=== PATIENT | male | born 1955 | race Caucasian/White ===

== ENCOUNTER 2020-02-04 07:47 | Outpatient (CLI) | payer MEDICARE, SELFPAY ==
--- NOTE | ~2020-02-04 | MR_ITS ---
EXAMINATION: MR lumbar spine wo con EXAM DATE: 02/04/2020 08:36 INDICATION: Low back, right hip pain. TECHNIQUE: Multi-sequential, multiplanar MR images of the lumbar spine were obtained without contrast . Sagittal T1, T2, T2 fat saturation images. Axial T2 weighted images. There is no prior study for comparison. FINDINGS: The vertebral bodies are aligned in the AP dimension. Mild to moderate diffuse thoracolumba r disc disease. The conus medullaris terminates at the T12 level and has normal signal intensity and morphology. There are no suspicious marrow signal abnormalities. Paraspinal soft tissue is unremarka ble. Level by level evaluation: T12-L1: There is a mild diffuse disc bulge. Facet arthropathy: Mild. Neural foraminal stenosis: No stenosis. Central canal stenosis: No stenosis. L1-L2: There is a minimal diffuse disc bulge. Facet arthropathy: Mild. Neural foraminal stenosis: No stenosis. Central canal stenosis: No stenosis. L2-L3: There is a mild diffuse disc bulge. Facet arthropathy: Mild to moderate. Neural foraminal stenosis: Mild bilateral. Central canal stenosis: Mild. L3-L4: There is a moderate diffuse disc bulge. Facet arthropathy: Mild to moderate. Neural foraminal stenosis: Moderate bilateral. Central canal stenosis: Mild to moderate. L4-L5: There is a moderate to large diffuse disc bulge. Facet arthropathy: Moderate to severe . Ligamentum flavum enlargement. Neural foraminal stenosis: Moderate right, mild to moderate left. Central canal stenosis: Severe. L5-S1: There is a mild to moderate diffuse disc bulge. Small annular fissure. Facet arthropathy: Moderate. Neural foraminal stenosis: Mild to moderate right, mild left. Central canal stenosis: Mild. IMPRESSION: 1. L4-5 severe central canal stenosis. Reviewed, dictated and finalized at location A.
== END 2020-02-04 07:48 | disposition home or self-care (01) ==
PROVIDERS: PCP Family Medicine; Visit Provider Nurse Practitioner Family
DX: M54.5 Low back pain (principal)
CPT/HCPCS: 72148

== ENCOUNTER 2020-02-16 10:50 | Outpatient (CLI) | payer MEDICARE, SELFPAY | END 2020-02-16 10:51 | disposition home or self-care (01) | LOC: ANHAUDIO 10:51 | PROVIDERS: PCP Family Medicine; Visit Provider Family Medicine | DX: H90.3 Sensorineural hearing loss, bilateral (principal) | CPT/HCPCS: 92557; 92567 ==

== ENCOUNTER 2020-08-20 13:29 | Outpatient (CLI) | payer MEDICARE, SELFPAY | END 2020-08-20 13:30 | disposition home or self-care (01) | LOC: ANHCOVIDVC 13:29 | PROVIDERS: PCP Family Medicine | DX: Z23 Encounter for immunization (principal) | CPT/HCPCS: 0001A; 91300 ==

== ENCOUNTER 2020-09-10 13:29 | Outpatient (CLI) | payer MEDICARE, SELFPAY | END 2020-09-10 13:30 | disposition home or self-care (01) | LOC: ANHCOVIDVC 13:29 | PROVIDERS: PCP Family Medicine | DX: Z23 Encounter for immunization (principal) | CPT/HCPCS: 0002A; 91300 ==

== ENCOUNTER 2020-10-01 07:26 | Observation (INO) | payer MEDICARE, SELFPAY ==
[2020-10-01] VITALS (41 sets, daily range): BP systolic 158–226; BP diastolic 71–95; PULSE 68–93; RESP 12–24; TEMP 35.9–36.8; O2SAT 92–99; BMI 44.1
--- NOTE | ~2020-10-01 | CT_ITS ---
EXAMINATION: CT brain wo con INDICATION: Altered mental status COMPARISON: 09/03/2016 TECHNIQUE: Standard unenhanced head CT. The dose-length product (DLP) was 605.33 mGy-cm. The mA was a djusted according to patient size. Iterative reconstruction technique was employed. FINDINGS: There is no acute intraparenchymal hemorrhage. No evidence of mass lesion. No evidence of a cute infarction. There is mild periventricular and subcortical hypodensity probably related to small vessel ischemic disease. There is mild prominence of the sulci and ventricles related to cerebral atr ophy. Intracranial calcified cerebral atherosclerosis is noted. There are no extra-axial collections. There is no mass effect or midline shift. The orbits and soft tissues are unremarkable. There is mi ld mucosal thickening of the paranasal sinuses. IMPRESSION: 1. No acute intracranial abnormality. 2. Age related findings. Reviewed, dictated and finalized at location A.
--- NOTE | ~2020-10-01 | XR_ITS ---
EXAMINATION: XR chest 1V INDICATION: Altered mental status TECHNIQUE: AP view of the chest is obtained. COMPARISON: 09/03/2016 FINDINGS: The lungs are free of acute opacities. The heart size is upper limits of normal for techniq ue. There is no pleural effusion or pneumothorax the visualized osseous structures are unremarkable. IMPRESSION: 1. No acute cardiopulmonary abnormality. Reviewed, dictated and finalized at location A.
--- NOTE | 2020-10-01 07:34 | ECG_ITS ---
Measurements Intervals [place] Rate: 92 P: 51 TX: 147 QRS: -38 QRSD: 118 T: 53 QT: 386 QTc: 479 Interpretive Statements SINUS RHYTHM VENTRICULAR PREMATURE COMPLEXES LEFT AXIS DEVIATION INCOMPLETE RIGHT BUNDLE BRANCH BLOCK BASELINE WANDER- V1-V2 BORDERLINE ECG Electronically Signed On 10-01-2020 10:41:00 CDT by Kevin Adams D.O.
--- NOTE | 2020-10-01 07:57 | ED.AMS ---
HPI - Altered Mental Status General Chief Complaint: Altered Mental Status Stated Complaint: delusional outbursts Time Seen by Provider: 10/01/20 07:41 Source: RN notes reviewed History of Present Illness HPI narrative: Patient presents to emergency department from home for altered mental status. Patient states that he had gone with his family to [place] states that he normally lives with him and his and they had met his children on [place]. He states that when all the family is together there is a large amount of fighting and he states that he had several outburst with the family secondary to these outbursts the family felt the patient may be acting inappropriately and it had too much of the family and they had recommended he remove himself from the situation the patient flown home early. Patient states he is picked up by another family member last night have been recommended come to the ER but he states that that time he is a little confused on what they were wanting I got home instead. Patient states he woke up this morning and felt like he should probably be evaluated and drove himself to the ER patient is ANO x4 he denies any vision changes, headache, chest pain, shortness of breath, numbness or tingling in extremities or any other symptom states he has been taking his medications as prescribed but did not take his morning blood pressure medicines today Related Data Home Medications Medication Instructions Recorded Confirmed amlodipine 5 mg PO DAILY 10/01/20 citalopram 40 mg PO DAILY 10/01/20 fluticasone propion-salmeterol INHALATION BID 10/01/20 gabapentin 600 mg PO TID 10/01/20 glimepiride 4 mg DAILY 10/01/20 insulin glargine [Lantus Solostar 60 unit SUBCUT BID 10/01/20 U-100 Insulin] lisinopril 20 mg PO DAILY 10/01/20 metformin 1,000 mg PO BID 10/01/20 simvastatin 40 mg PO HS 10/01/20 tamsulosin 0.4 mg PO DAILY 10/01/20 Allergies Allergy/AdvReac Type Severity Reaction Status Date / Time No Known Allergies Allergy Verified 01/26/20 13:16 Review of Systems Review of Systems: Narrative: Gen.: Denies fevers or chills ENT: Denies congestion Respiratory: Denies shortness of breath or cough CV: Denies chest pain or palpitations GI: Denies abdominal pain nausea, emesis or diarrhea denies burning, urgency, frequency or hematuria Musculoskeletal: Denies back pain or muscle pain Neuro: Denies numbness, tingling, weakness or focal weakness Skin: Denies rash Psych: See HPI Except as documented, all other systems reviewed and negative PMFSH Past Medical History Medical History Chronic GERD Depression Diabetes 1.5, managed as type 2 Emphysema lung HTN (hypertension) Lumbar spine pain Sciatica Seasonal allergies SOB (shortness of breath) Urinary hesitancy Family History Family History Sibling Family history of thyroid disease Mother Cerebrovascular accident Family history of Alzheimer's disease Family history of hearing loss Grandparent Family history of Alzheimer's disease Father Malignant neoplasm of prostate Family history of coronary artery disease Family history of lung disease Family history of hearing loss Social History Social History Smoking status: Never smoker Alcohol intake: never Gender identity (if verbalized by the patient): Male Exam Narrative: Exam Narrative: APPEARANCE: No acute distress, nontoxic, resting in bed HEENT: Normocephalic, atraumatic, OMM, EYES: PERRL, EOMI NECK: Supple, nontender, full range of motion without pain, no meningismus RESPIRATORY: No respiratory distress, clear to auscultation bilaterally with no rhonchi wheezing or rales CARDIOVASCULAR: RRR s murmur ABDOMINAL: Soft, nontender, nondistended MUSCULOSKELETAL: Moves all extremities. No clubbing, cyanosis or edema. NEURO: A
[2020-10-01 08:12] LABS: Basophils Percent Auto 0.5 % (0.2-1.2); Eosinophils Absolute Auto 0.2 K/mm3 (0-0.3); Eosinophils Percent Auto 2.6 % (0-4.4); Hematocrit 38.8 % (42.0-52.0); Hemoglobin 11.8 g/dL (14.0-18.0); Immature Granulocyte Absolute 0.02 K/mm3 (0.00-0.031); Immature Granulocyte Percent A 0.2 % (0-0.5); Lymphocytes Absolute Auto 1.37 K/mm3 (0.9-3.2); Mean Corpuscular HGB Conc 30.4 g/dl (32-36); Mean Corpuscular Hemoglobin 25.5 pg (26-34); Mean Corpuscular Volume 83.8 fl (80-100); Mean Platelet Volume 9.2 fl (7.4-10.4); Monocytes Absolute Auto 0.8 K/mm3 (0.1-0.6); Monocytes Percent Auto 9.8 % (2.6-8.5); Neutrophils Absolute Auto 5.6 K/mm3 (1.3-6.7); Neutrophils Percent Auto 69.9 % (45.5-73.1); Platelet Count Result 351 k/mm3 (150-375); Red Blood Count 4.63 M/mm3 (4.6-6.20); Red Cell Distribution Width 15.9 % (11.5-14.5); White Blood Count 8.1 K/mm3 (4.5-10.0)
[2020-10-01 08:17] LABS: Add Urine Microscopic? YES; Appearance Urine Cloudy (Clear); Bacteria Urine Trace /hpf; Bilirubin Urine Negative (Negative); Blood Urine 1+ (Negative); Color Urine Yellow (Yellow); Glucose Urine UA 1+ mg/dL (Negative); Ketones Urine Negative (Negative); Leukocyte Esterase Ur 2+ LEU/UL (Negative); Mucus Urine Rare /lpf; Nitrate Urine Negative (Negative); Protein Urine 1+ mg/dL (Negative); Specific Grav Ur 1.026 (1.001-1.035); Squamous Epithelial Cell Urine Rare /hpf (Few); WBC Urine 31-50 /hpf
[2020-10-01 08:21] LABS: Alanine Aminotransferase 36 U/L (4-50); Albumin Level 4.4 g/dL (3.5-5.1); Alkaline Phosphatase 74 U/L (38-126); Anion Gap 8 mmol/L (8-16); Aspartate Amino Transferase 39 U/L (17-59); Bilirubin,Total 0.4 mg/dL (0.2-1.3); Blood Urea Nitrogen 17 mg/dL (9-20); Calcium 9.1 mg/dL (8.4-10.2); Carbon Dioxide 25 mmol/L (22-30); Chloride 107 mmol/L (98-107); Estimated CRCL calculation 78 ml/min; Estimated Glomerular Filt Rate > 60; Glucose 158 mg/dL (75-110); Potassium 3.5 mmol/L (3.4-5.0); Sodium 140 mmol/L (137-145)
[2020-10-01 08:22] LABS: Partial Thromboplastin Time 25.5 SECONDS (22.3-36.8); Prothrombin Time 13.6 Seconds (11.1-14.7)
[2020-10-01 08:27] LABS: Ethanol < 10 mg/dL (<10)
[2020-10-01 08:37] LABS: Amphetamine Screen Urine Negative (Negative); Barbiturate Screen Urine Negative (Negative); Benzodiazepines Screen Urine Negative (Negative); Cannabinoid Screen Urine Positive (Negative); Cocaine Screen Urine Negative (Negative); Methadone Screen Urine Negative (Negative); Opiate Screen Urine Negative (Negative); Phencyclidine Screen Urine Negative (Negative)
[2020-10-01] MEDS: amLODIPine BESYLATE 5 MG TABLET PO (08:40)
[2020-10-01] MEDS: lisinopriL 20 MG TABLET PO (08:40)
--- NOTE | 2020-10-01 10:23 | PC.NURSE ---
Addendum entered by Radha Ochoa RN 10/01/20 10:31: call placed on hold and dr kim will speak with family. Original Note: called laurie and she gave phone to daughter wayne: wayne states that there was family drama yesterday and pt expressed desire to return to [place]. pt was picked up at airport by a relative. pt was reported to smoke cannibus while in [place]. family states pt was compliant with all meds while on vacation. family unsure why he would go to ed unless he was concerned with diabetes. wayne states that pt was more argumentative recently while consuming cannibus. wayne does not think anyone told pt he was delusional or having psych issues. will return to [place] on october 10. there is family in town (sister in law) to care for pt.
[2020-10-01 10:30] LABS: Glucose Point of Care 162 mg/dl (65-105)
[2020-10-01 14:55] LABS: Glucose Point of Care 114 mg/dl (65-105)
--- NOTE | 2020-10-01 15:05 | ADMGEN ---
This patient, Kwesi Rogers, was admitted to Medical Room 257-01. Patient/family oriented to hospital policies and general routines including ID bracelet, bed and alarms, visiting hours, pain management, procedures, bathroom and other care routines, personal items, smoking policy, room service/diet, and visiting hours. Information on how to activate the Rapid Response Team has been discussed. Patient/Family are encouraged to report perceived risks to care and to ask questions if they do not understand what they are told or what they should do.
--- NOTE | 2020-10-01 18:59 | PM.IMHP ---
H&P: HPI History of Present Illness Date/Time: 10/01/20 18:59 this is a 65-year-old male patient who really does not have any complaints. The patient recently went on a trip to [place] with his and 2 step children. The patient left early because he was arguing with her children and could no longer take it. He stated that the family members were having several outbursts. And there was a large amount of fighting within the family. So the patient decided to take a flight home by himself. He was able to make it to the airport and had to be taken by wheelchair to get on the plane. The patient denied any fever chills. He has no nausea vomiting or diarrhea. The patient feels that he is a little bit confused and he wanted to get checked out. The patient does have COPD and stated that he was using inhalers quite frequently in [place] because he was more short of breath due to the dense air in [place]. He drove himself to the hospital. He had no visual disturbances. No focal weakness. He has been taking his medications as prescribed but did not take his blood pressure medicine today. Blood pressure was 188/73 and 201/94. H&H 11.8 and 38.8. His blood sugar was 162. Thyroid levels within normal limits. Head CT was listed as no acute intracranial abnormality. Age-related findings. No acute cardiopulmonary abnormalities. Chest x-ray was read as no acute cardiopulmonary abnormalities. Looked to be mildly infective. The patient was started on Rocephin Norvasc and lisinopril in the emergency room. The patient is being admitted to observation on the date of service of 10/01/2020. Chief Complaint: Weakness and confusion Review of Systems Review of Systems: All systems reviewed & are unremarkable except as noted in HPI and below Constitutional: Constitutional: Reports as per HPI and Reports no additional constitutional complaints Eyes: Eyes: Reports as per HPI and Reports no additional eye complaints ENT: Reports system reviewed and no additional complaints, except as documented and Reports Normal hearing present Cardiovascular: Cardiovascular: Reports no additional cardiovascular complaints Respiratory: Respiratory: Reports no additional respiratory complaints and Reports no additional respiratory complaints Gastrointestinal: Gastrointestinal: Reports as per HPI and Reports no additional gastrointestinal complaints Musculoskeletal: Musculoskeletal: Reports no additional musculoskeletal complaints Integumentary/Breasts: Skin/Breast: Reports system reviewed and no additional complaints, except as docu and Reports as per HPI Neurologic: Reports system reviewed and no additional complaints, except as documented, Reports as per HPI and Reports Normal hearing present Psychiatric: Psychiatric: Reports no additional psychiatric complaints and Reports as per HPI Endocrine: Endocrine: Reports no additional endocrine complaints Hematologic/Lymphatic: Hematologic/Lymphatic: Reports no additional hematologic/lymphatic complaints Allergic/Immunologic: Allergic/Immunologic: Reports no additional allergic/immunologic complaints [facility] Past Medical History Medical History (Updated 10/01/20 @ 19:57 by Tamiko Coleman NP) Anxiety BPH (benign prostatic hyperplasia) Chronic GERD COPD (chronic obstructive pulmonary disease) Depression Diabetes 1.5, 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
[2020-10-01] MEDS: FLUTICASONE/SALMETEROL 115-21 MCG INHALER 1 PUFF 2 PUFF INHALATION (20:59)
[2020-10-01] MEDS: SIMVASTATIN 20 MG TABLET 40 MG PO (20:59)
[2020-10-01] MEDS: INSULIN GLARGINE (*BKC) 100 UNITS/ML 60 UNITS SUB-Q (21:01)
[2020-10-01 21:11] LABS: Glucose Point of Care 113 mg/dl (65-105)
[2020-10-02] VITALS (13 sets, daily range): BP systolic 170–214; BP diastolic 60–84; PULSE 60–88; RESP 14–20; TEMP 35.9–36.6; O2SAT 94–98
[2020-10-02 05:16] LABS: Basophils Percent Auto 0.3 % (0.2-1.2); Eosinophils Absolute Auto 0.2 K/mm3 (0-0.3); Eosinophils Percent Auto 3.7 % (0-4.4); Hematocrit 38.6 % (42.0-52.0); Hemoglobin 11.7 g/dL (14.0-18.0); Immature Granulocyte Absolute 0.01 K/mm3 (0.00-0.031); Immature Granulocyte Percent A 0.2 % (0-0.5); Lymphocytes Absolute Auto 1.17 K/mm3 (0.9-3.2); Lymphocytes Percent Auto 18.9 % (18.3-44.2); Mean Corpuscular HGB Conc 30.3 g/dl (32-36); Mean Corpuscular Hemoglobin 25.6 pg (26-34); Mean Corpuscular Volume 84.5 fl (80-100); Monocytes Absolute Auto 0.6 K/mm3 (0.1-0.6); Monocytes Percent Auto 9.4 % (2.6-8.5); Neutrophils Absolute Auto 4.2 K/mm3 (1.3-6.7); Neutrophils Percent Auto 67.5 % (45.5-73.1); Platelet Count Result 297 k/mm3 (150-375); Red Blood Count 4.57 M/mm3 (4.6-6.20); Red Cell Distribution Width 15.9 % (11.5-14.5); White Blood Count 6.2 K/mm3 (4.5-10.0)
[2020-10-02 05:33] LABS: Alanine Aminotransferase 32 U/L (4-50); Albumin Level 3.9 g/dL (3.5-5.1); Alkaline Phosphatase 61 U/L (38-126); Anion Gap 6 mmol/L (8-16); Aspartate Amino Transferase 31 U/L (17-59); Bilirubin,Total 0.4 mg/dL (0.2-1.3); Blood Urea Nitrogen 11 mg/dL (9-20); Calcium 8.8 mg/dL (8.4-10.2); Carbon Dioxide 29 mmol/L (22-30); Chloride 109 mmol/L (98-107); Estimated CRCL calculation 81 ml/min; Estimated Glomerular Filt Rate > 60; Glucose 121 mg/dL (75-110); Potassium 3.9 mmol/L (3.4-5.0); Sodium 144 mmol/L (137-145)
[2020-10-02] MEDS: lisinopriL 20 MG TABLET PO ×2 (06:33→10:33)
[2020-10-02] MEDS: amLODIPine BESYLATE 5 MG TABLET PO ×2 (06:33→16:52)
[2020-10-02 07:41] LABS: Glucose Point of Care 124 mg/dl (65-105)
[2020-10-02] MEDS: FLUTICASONE/SALMETEROL 115-21 MCG INHALER 1 PUFF 2 PUFF INHALATION ×2 (08:20→20:11)
[2020-10-02] MEDS: TAMSULOSIN HCL 0.4 MG CAPSULE PO (09:17)
[2020-10-02] MEDS: metFORMIN HCL 500 MG TABLET 1000 MG PO ×2 (09:17→16:52)
[2020-10-02] MEDS: CITALOPRAM HYDROBROMIDE 10 MG TABLET 40 MG PO (09:17)
[2020-10-02] MEDS: GABAPENTIN 300 MG CAPSULE 600 MG PO (09:18)
[2020-10-02] MEDS: INSULIN GLARGINE (*BKC) 100 UNITS/ML 30 UNITS SUB-Q (09:18)
--- NOTE | 2020-10-02 10:26 | PM.IMPN ---
Progress Note: A&P Assessment and Plan (1) Acute UTI: Code(s): N39.0 - Urinary tract infection, site not specified Status: Acute Assessment and Plan: Patient was started on Rocephin IV. Urine cultures and blood cultures are pending. Continue monitoring, pending urine culture results. (2) BPH (benign prostatic hyperplasia): Code(s): N40.0 - Benign prostatic hyperplasia without lower urinary tract symptoms Status: Chronic Assessment and Plan: Continue with tamsulosin, which he has not been taking for a while. Will check postvoid residual Will need to consider finasteride as an outpatient by his primary care provider if needed. (3) Hypertension: Code(s): I10 - Essential (primary) hypertension Status: Chronic Assessment and Plan: Blood pressure was elevated this morning at 6:00 a.m. so the nurse gave him his home lisinopril 20 mg and amlodipine 5 mg. Recheck blood pressure at 10 a.m. and it was still elevated 189/60. Will give extra dose of lisinopril, increase lisinopril to 40 mg daily and will consider increasing amlodipine if blood pressure still elevated. Will had IV hydralazine p.r.n.. (4) Diabetes mellitus with neuropathy: Code(s): E11.40 - Type 2 diabetes mellitus with diabetic neuropathy, unspecified Status: Chronic Assessment and Plan: Serum glucose this morning was 121. Decreased home insulin by 50%. Continue with patient's metformin and glimepiride. Continue with Accu-Cheks AC and HS. Hypoglycemic protocol in place. Sliding scale insulin initiated. (5) COPD (chronic obstructive pulmonary disease): Code(s): J44.9 - Chronic obstructive pulmonary disease, unspecified Status: Chronic Assessment and Plan: Continue with patient's home inhalers. Lung sounds are clear. (6) Anxiety: Code(s): F41.9 - Anxiety disorder, unspecified Status: Chronic Assessment and Plan: Continue Celexa. (7) Hyperlipidemia: Code(s): E78.5 - Hyperlipidemia, unspecified Status: Chronic Assessment and Plan: Continue with Zocor (8) Depression: Code(s): F32.9 - Major depressive disorder, single episode, unspecified Status: Chronic Assessment and Plan: Continue with Celexa (9) Chronic GERD: Code(s): K21.9 - Gastro-esophageal reflux disease without esophagitis Status: Acute Assessment and Plan: Started PPI with hospitalization. Time Spent With Patient Time with patient: 25 - 35 minutes Subjective Date/time seen: 10/02/20 10:26 Interval history: Patient is a 65-year-old man with a history BPH, diabetes, hypertension, who presents to the emergency room with confusion and weakness. The patient when out of town for a family vacation to [place] but came back early to family issues. His cegkrl-ps-ere picked him up from the airport and said he was acting confused and not making sense in suggested to come to the ER. Patient went home and began to think about it more side come in for further evaluation. Vitals showed he was afebrile, non tachycardic, blood pressure elevated to 101/94, normal oxygenation on room air. Initial labs showed Normocytic anemia with a hemoglobin of 11/hemoglobin 30 8%. Normal CMP other than elevated glucose at 158. Urinalysis was abnormal in suggesting UTI. CT head showed no acute intracranial abnormality, age-related findings. Chest x-ray showed no acute cardiopulmonary process. Patient was admitted to the hospital for IV antib
[2020-10-02] MEDS: ENOXAPARIN 40 MG/0.4 ML SYRINGE SUB-Q (10:34)
[2020-10-02 12:10] LABS: Glucose Point of Care 170 mg/dl (65-105)
[2020-10-02 16:08] LABS: Glucose Point of Care 91 mg/dl (65-105)
[2020-10-02] MEDS: INSULIN GLARGINE (*BKC) 100 UNITS/ML 15 UNITS SUB-Q (16:52)
[2020-10-02] MEDS: PANTOPRAZOLE 40 MG TABLET PO (20:09)
[2020-10-02] MEDS: SIMVASTATIN 20 MG TABLET 40 MG PO (20:09)
[2020-10-02] MEDS: hydrALAZINE HCL 20 MG/ML VIAL 10 MG IV PUSH (20:52)
[2020-10-02 20:56] LABS: Glucose Point of Care 85 mg/dl (65-105)
[2020-10-03] VITALS (7 sets, daily range): BP systolic 154–172; BP diastolic 71–82; PULSE 67–78; RESP 12–16; TEMP 35.9; O2SAT 97
[2020-10-03 05:32] LABS: Hematocrit 38.3 % (42.0-52.0); Mean Corpuscular HGB Conc 31.3 g/dl (32-36); Mean Corpuscular Hemoglobin 25.5 pg (26-34); Mean Corpuscular Volume 81.5 fl (80-100); Mean Platelet Volume 9.2 fl (7.4-10.4); Platelet Count Result 343 k/mm3 (150-375); Red Cell Distribution Width 15.4 % (11.5-14.5); White Blood Count 6.7 K/mm3 (4.5-10.0)
[2020-10-03 05:43] LABS: Anion Gap 7 mmol/L (8-16); Blood Urea Nitrogen 12 mg/dL (9-20); Calcium 8.8 mg/dL (8.4-10.2); Carbon Dioxide 26 mmol/L (22-30); Chloride 107 mmol/L (98-107); Estimated CRCL calculation 73 ml/min; Estimated Glomerular Filt Rate > 60; Glucose 107 mg/dL (75-110); Potassium 3.6 mmol/L (3.4-5.0); Sodium 140 mmol/L (137-145)
[2020-10-03 08:01] LABS: Glucose Point of Care 116 mg/dl (65-105)
[2020-10-03] MEDS: metFORMIN HCL 500 MG TABLET 1000 MG PO (08:57)
[2020-10-03] MEDS: TAMSULOSIN HCL 0.4 MG CAPSULE PO (08:58)
[2020-10-03] MEDS: PANTOPRAZOLE 40 MG TABLET PO (08:58)
[2020-10-03] MEDS: amLODIPine BESYLATE 5 MG TABLET 10 MG PO (08:58)
[2020-10-03] MEDS: GABAPENTIN 300 MG CAPSULE 600 MG PO (08:59)
[2020-10-03] MEDS: CITALOPRAM HYDROBROMIDE 10 MG TABLET 40 MG PO (09:00)
[2020-10-03] MEDS: ENOXAPARIN 40 MG/0.4 ML SYRINGE SUB-Q (09:00)
[2020-10-03] MEDS: FLUTICASONE/SALMETEROL 115-21 MCG INHALER 1 PUFF 2 PUFF INHALATION (09:02)
[2020-10-03] MEDS: INSULIN GLARGINE (*BKC) 100 UNITS/ML 30 UNITS SUB-Q (09:12)
[2020-10-03] MEDS: lisinopriL 20 MG TABLET 40 MG PO (10:05)
[2020-10-03 11:47] LABS: Glucose Point of Care 130 mg/dl (65-105)
--- NOTE | 2020-10-03 11:57 | PM.IMPN ---
Progress Note: A&P Assessment and Plan (1) Acute UTI: Code(s): N39.0 - Urinary tract infection, site not specified Status: Acute Assessment and Plan: Patient was started on Rocephin IV. Urine cultures and blood cultures are pending. Continue monitoring, pending urine culture results. (2) BPH (benign prostatic hyperplasia): Code(s): N40.0 - Benign prostatic hyperplasia without lower urinary tract symptoms Status: Chronic Assessment and Plan: Continue with tamsulosin, which he has not been taking for a while. Will check postvoid residual Will need to consider finasteride as an outpatient by his primary care provider if needed. (3) Hypertension: Code(s): I10 - Essential (primary) hypertension Status: Chronic Assessment and Plan: Blood pressure was elevated this morning at 6:00 a.m. so the nurse gave him his home lisinopril 20 mg and amlodipine 5 mg. Recheck blood pressure at 10 a.m. and it was still elevated 189/60. Will give extra dose of lisinopril, increase lisinopril to 40 mg daily and will consider increasing amlodipine if blood pressure still elevated. Will had IV hydralazine p.r.n.. (4) Diabetes mellitus with neuropathy: Code(s): E11.40 - Type 2 diabetes mellitus with diabetic neuropathy, unspecified Status: Chronic Assessment and Plan: Serum glucose this morning was 121. Decreased home insulin by 50%. Continue with patient's metformin and glimepiride. Continue with Accu-Cheks AC and HS. Hypoglycemic protocol in place. Sliding scale insulin initiated. (5) COPD (chronic obstructive pulmonary disease): Code(s): J44.9 - Chronic obstructive pulmonary disease, unspecified Status: Chronic Assessment and Plan: Continue with patient's home inhalers. Lung sounds are clear. (6) Anxiety: Code(s): F41.9 - Anxiety disorder, unspecified Status: Chronic Assessment and Plan: Continue Celexa. (7) Hyperlipidemia: Code(s): E78.5 - Hyperlipidemia, unspecified Status: Chronic Assessment and Plan: Continue with Zocor (8) Depression: Code(s): F32.9 - Major depressive disorder, single episode, unspecified Status: Chronic Assessment and Plan: Continue with Celexa (9) Chronic GERD: Code(s): K21.9 - Gastro-esophageal reflux disease without esophagitis Status: Acute Assessment and Plan: Started PPI with hospitalization. Subjective Date/time seen: 10/03/20 11:57 Interval history: Patient is a 65-year-old man with a history BPH, diabetes, hypertension, who presents to the emergency room with confusion and weakness. The patient when out of town for a family vacation to [place] but came back early to family issues. His ythizn-[id number]-mzw picked him up from the airport and said he was acting confused and not making sense in suggested to come to the ER. Patient went home and began to think about it more side come in for further evaluation. Vitals showed he was afebrile, non tachycardic, blood pressure elevated to 101/94, normal oxygenation on room air. Initial labs showed Normocytic anemia with a hemoglobin of 11/hemoglobin 30 8%. Normal CMP other than elevated glucose at 158. Urinalysis was abnormal in suggesting UTI. CT head showed no acute intracranial abnormality, age-related findings. Chest x-ray showed no acute cardiopulmonary process. Patient was admitted to the hospital for IV antibiotics for urinary tract infection, pending blood and urine
--- NOTE | 2020-10-03 12:04 | PM.DS ---
DS: Admitting Diagnosis Admitting Diagnosis Admitting Diagnosis: Confusion DS: Discharge Diagnosis Discharge Diagnosis (1) Acute UTI: Code(s): N39.0 - Urinary tract infection, site not specified Status: Acute Assessment and Plan: (2) BPH (benign prostatic hyperplasia): Code(s): N40.0 - Benign prostatic hyperplasia without lower urinary tract symptoms Status: Chronic Assessment and Plan: (3) Hypertension: Code(s): I10 - Essential (primary) hypertension Status: Chronic Assessment and Plan: (4) Diabetes mellitus with neuropathy: Code(s): E11.40 - Type 2 diabetes mellitus with diabetic neuropathy, unspecified Status: Chronic Assessment and Plan: (5) COPD (chronic obstructive pulmonary disease): Code(s): J44.9 - Chronic obstructive pulmonary disease, unspecified Status: Chronic Assessment and Plan: (6) Anxiety: Code(s): F41.9 - Anxiety disorder, unspecified Status: Chronic Assessment and Plan: (7) Hyperlipidemia: Code(s): E78.5 - Hyperlipidemia, unspecified Status: Chronic Assessment and Plan: (8) Depression: Code(s): F32.9 - Major depressive disorder, single episode, unspecified Status: Chronic Assessment and Plan: (9) Chronic GERD: Code(s): K21.9 - Gastro-esophageal reflux disease without esophagitis Status: Acute Assessment and Plan: DS: Summary Hospital Course Hospital Course: Patient is a 65-year-old man with a history BPH, diabetes, hypertension, who presents to the emergency room with confusion and weakness. The patient when out of town for a family vacation to [place] but came back early to family issues. His mcvgeo-[id number]-isu picked him up from the airport and said he was acting confused and not making sense in suggested to come to the ER. Patient went home and began to think about it more side come in for further evaluation. Vitals showed he was afebrile, non tachycardic, blood pressure elevated to 101/94, normal oxygenation on room air. Initial labs showed Normocytic anemia with a hemoglobin of 11/hemoglobin 30 8%. Normal CMP other than elevated glucose at 158. Urinalysis was abnormal in suggesting UTI. CT head showed no acute intracranial abnormality, age-related findings. Chest x-ray showed no acute cardiopulmonary process. Patient was admitted to the hospital for IV antibiotics for urinary tract infection, pending blood and urine culture results. Patient's urine culture came back showing no growth. Due to his symptoms, urinary retention due to BPH issues and not taking his Flomax, on going to continue treating with antibiotics for a few more days for a suspected UTI. Explained to the patient the importance of taking his Flomax, if he has any issues with urinary retention or abnormal urination he needs pelvis primary care provider or urologist. While patient was here he had very elevated blood pressures, so we increase lisinopril to 40 mg and amlodipine to 10 mg daily. I told him to check his blood pressure twice daily and write it down 1st primary care provider. Check his blood pressure if he is lightheaded, dizzy or having any other concerns. Follow-up with his primary care provider for any further adjustments and follow-up after hospitalization. Status at Discharge Cognitive/behavioral status at discharge: Stable, improved. Time Spent with Patient
--- NOTE | 2020-10-12 13:02 | PC.NURSE ---
Blood cx is negative.
== END 2020-10-03 14:15 | disposition home or self-care (01) ==
LOC: ANHED 12:17 → ANH2MED 14:06
PROVIDERS: Nurse Practitioner; Admitting Provider Internal Medicine; Emergency Provider Emergency Medicine; PCP Family Medicine; Visit Provider Physician Assistant
DX: N39.0 Urinary tract infection, site not specified (principal); N40.0 Benign prostatic hyperplasia without lower urinary tract symptoms; I10 Essential (primary) hypertension; R41.0 Disorientation, unspecified; J44.9 Chronic obstructive pulmonary disease, unspecified; K21.9 Gastro-esophageal reflux disease without esophagitis; R06.02 Shortness of breath; R53.1 Weakness; E11.42 Type 2 diabetes mellitus with diabetic polyneuropathy; F41.9 Anxiety disorder, unspecified; E78.5 Hyperlipidemia, unspecified; Z79.4 Long term (current) use of insulin; Z79.899 Other long term (current) drug therapy
CPT/HCPCS: 36415; 70450; 71045; 80048; 80053; 80307; 81001; 82948; 83036; 84443; 85025; 85027; 85610; 85730; 87040; 87086; 93005; 94640; 96365; 96372; 96375; 99285; A9270; G0378; J0360; J0696; J1650; J1815

== ENCOUNTER 2020-12-27 03:00 | Day surgery (SDC) | payer MEDICARE, MEDICAID, SELFPAY ==
[2020-12-18 14:52] VITALS: BMI 35.1
[2020-12-27 07:15] VITALS: BP 130/61; PULSE 69; RESP 19; TEMP 35.7; O2SAT 97
--- NOTE | 2020-12-27 07:27 | WPDGICN ---
Assessment and Plan Assessment and plan (1) History of colon polyps: Code(s): Z86.010 - Personal history of colonic polyps Status: Acute Assessment and Plan: Patient has a history of colon polyps. For this reason colonoscopy is to be performed at this time. Further recommendations will be given after endoscopy. GI Consult Note Consult date/time: 12/27/20 07:27 HPI: Kwesi Rogers is a 65 year old male Presents for screening colonoscopy. Patient reports his weight appetite bowel movements are normal. He denies abdominal pain. He has had no bleeding. Patient does have a prior history of colon polyps. Most recent colonoscopy was 5 years ago. His family history is noncontributory. Patient presents today for colonoscopy. 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 Emphysema lung HTN (hypertension) Hyperlipidemia Lumbar spine pain Sciatica Seasonal allergies SOB (shortness of breath) Urinary hesitancy Surgical History Surgical History (Updated 10/01/20 @ 19:45 by Tamiko Coleman NP) Hx of cholecystectomy Family History Family History Sibling Family history of thyroid disease Mother Cerebrovascular accident Family history of Alzheimer's disease Family history of hearing loss Grandparent Family history of Alzheimer's disease Father Malignant neoplasm of prostate Family history of coronary artery disease Family history of lung disease Family history of hearing loss Social History Social History (Updated 10/01/20 @ 19:46 by Tamiko Coleman NP) Social History: The patient has 2 biological children and 2 step children. The patient stated that his is the durable power banking attorney for healthcare. The patient is a full code. The patient is retired. Patient is a lifelong nonsmoker. Does not use any alcohol but he does smoke marijuana every day. Smoking status: Never smoker Alcohol intake: never Substance use: current Substance use type: marijuana Last use: 09/30/20 Living arrangements: with family Gender identity (if verbalized by the patient): Male Spiritual care concerns: No Meds Home Medications and Allergies Home Medications Medication Instructions Recorded Confirmed Type Landante Solostar U-100 Insulin 60 unit SUBCUT BID 10/01/20 12/18/20 History citalopram 40 mg PO DAILY 10/01/20 12/27/20 History fluticasone propion-salmeterol 1 inh INHALATION BID 10/01/20 12/27/20 History gabapentin 600 mg PO TID PRN 10/01/20 12/27/20 History glimepiride 4 mg DAILY 10/01/20 12/27/20 History metformin 1,000 mg PO BID 10/01/20 12/18/20 History amlodipine [Norvasc] 10 mg PO DAILY #30 tablet 10/03/20 12/27/20 Rx lisinopril 40 mg PO DAILY #30 tablet 10/03/20 12/18/20 Rx [id number] 1 tablet PO DAILY 12/18/20 12/27/20 History [Neuriva Plus] atorvastatin 20 mg PO DAILY 12/18/20 12/27/20 History finasteride 5 mg PO DAILY 12/18/20 12/27/20 History ketoconazole 1 applic TOPICAL DAILY 12/18/20 12/18/20 History tamsulosin 0.8 mg PO DAILY 12/18/20 12/18/20 History Allergies Allergy/AdvReac Type Severity Reaction Status Date / Time No Known Allergies Allergy Verified 12/27/20 07:25 Exam Narrative: Physical exam reveals patient to be alert. Vital signs stable. HEENT exam is unremarkable. Patient is anicteric. Lungs are clear to auscultation and percussion. Heart is without murmur or extra sounds. Abdominal exam bowel sounds are present soft nontender with no organomegaly. Digital external rectal exam is normal.
[2020-12-27 07:29] LABS: Glucose Point of Care 88 mg/dl (65-105)
[2020-12-27] MEDS: LACTATED RINGERS 1,000 ML 150 ML IV CONT (07:35)
--- NOTE | 2020-12-27 07:49 | WPDANESEPPF ---
Anes - Initial Pre Proc Eval Procedure: Operation Date: 12/27/20 08:30 Proposed Procedures p Screening Colonoscopy - Henry Armstrong MD Date/Time: 12/27/20 07:49 Surgeon: Henry Armstrong MD Pre Op Diagnosis: hx of colon polyps Patient Data Age: 65 Gender: M Height: 1.78 m Weight: 105.5 kg Last Vital Signs Temp 96.3 F L 12/27/20 07:15 Pulse 69 12/27/20 07:15 Resp 19 12/27/20 07:15 BP 130/61 12/27/20 07:15 Pulse Ox 97 12/27/20 07:15 Allergies Allergy/AdvReac Type Severity Reaction Status Date / Time No Known Allergies Allergy Verified 12/27/20 07:25 Home Medications Medication Instructions Recorded Confirmed Type Lantus Solostar U-100 Insulin 60 unit SUBCUT BID 10/01/20 12/18/20 History citalopram 40 mg PO DAILY 10/01/20 12/27/20 History fluticasone propion-salmeterol 1 inh INHALATION BID 10/01/20 12/27/20 History gabapentin 600 mg PO TID PRN 10/01/20 12/27/20 History glimepiride 4 mg DAILY 10/01/20 12/27/20 History metformin 1,000 mg PO BID 10/01/20 12/18/20 History amlodipine [Norvasc] 10 mg PO DAILY #30 tablet 10/03/20 12/27/20 Rx lisinopril 40 mg PO DAILY #30 tablet 10/03/20 12/18/20 Rx [id number] 1 tablet PO DAILY 12/18/20 12/27/20 History [Neuriva Plus] atorvastatin 20 mg PO DAILY 12/18/20 12/27/20 History finasteride 5 mg PO DAILY 12/18/20 12/27/20 History ketoconazole 1 applic TOPICAL DAILY 12/18/20 12/18/20 History tamsulosin 0.8 mg PO DAILY 12/18/20 12/18/20 History Laboratory Tests 12/27/20 07:23 POC Capillary Glucose 88 mg/dl mg/dl (65-105) Patient hx anesthesia problems: none Family hx [facility] problems: none 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 Emphysema lung HTN (hypertension) Hyperlipidemia Lumbar spine pain Sciatica Seasonal allergies SOB (shortness of breath) Urinary hesitancy Surgical History Surgical History (Updated 10/01/20 @ 19:45 by Tamiko Coleman NP) Hx of cholecystectomy Family History Family History Sibling Family history of thyroid disease Mother Cerebrovascular accident Family history of Alzheimer's disease Family history of hearing loss Grandparent Family history of Alzheimer's disease Father Malignant neoplasm of prostate Family history of coronary artery disease Family history of lung disease Family history of hearing loss Social History Social History (Updated 10/01/20 @ 19:46 by Tamiko Coleman NP) Social History: The patient has 2 biological children and 2 step children. The patient stated that his is the durable power trust and estates attorney for healthcare. The patient is a full code. The patient is retired. Patient is a lifelong nonsmoker. Does not use any alcohol but he does smoke marijuana every day. Smoking status: Never smoker Alcohol intake: never Substance use: current Substance use type: marijuana Last use: 09/30/20 Living arrangements: with family Gender identity (if verbalized by the patient): Male Spiritual care concerns: No Anes - Eval Final PreProcedure Day of Procedure 12/27/20 07:49 Patient weight: obese Heart: regular rate and rhythm Lungs: clear to auscultation Airway: Mallampati scale class III Neurological: alert and oriented Last oral intake: >/= 8 hours ASA classification: III Emergent: no Anesthetic plan: proceed Anesthesia type and monitoring: general GIVS and standard monitoring Informed Consent: The patient's anesthetic plan and its attendant risks and benefits were discussed with the patient/family/POA. Questions were solicited and answers provided to the satisfaction of the patient/family/POA.
[2020-12-27 08:26] VITALS: BP 106/64; PULSE 62; RESP 22; O2SAT 96
[2020-12-27 08:36] VITALS: BP 122/73; PULSE 68; RESP 18; O2SAT 97
[2020-12-27 08:41] LABS: Glucose Point of Care 92 mg/dl (65-105)
[2020-12-27 08:46] VITALS: BP 138/77; PULSE 60; RESP 18; O2SAT 97
== END 2020-12-27 09:00 | disposition home or self-care (01) ==
PROVIDERS: PCP Family Medicine; Visit Provider Internal Medicine Gastroenterology
PROC: 0DJD8ZZ Inspection of Lower Intestinal Tract, Via Natural or Artificial Opening Endoscopic (ICD-10-PCS; CPT 45378; principal; 2020-12-27 08:30)
DX: Z12.11 Encounter for screening for malignant neoplasm of colon (principal); K57.30 Diverticulosis of large intestine without perforation or abscess without bleeding; D12.8 Benign neoplasm of rectum; I10 Essential (primary) hypertension; E13.9 Other specified diabetes mellitus without complications; J44.9 Chronic obstructive pulmonary disease, unspecified; K21.9 Gastro-esophageal reflux disease without esophagitis; N40.0 Benign prostatic hyperplasia without lower urinary tract symptoms; F41.8 Other specified anxiety disorders; E78.5 Hyperlipidemia, unspecified; F12.90 Cannabis use, unspecified, uncomplicated; Z79.4 Long term (current) use of insulin; Z79.84 Long term (current) use of oral hypoglycemic drugs
CPT/HCPCS: 45385; 82948; 88305; J2704; J7120

== ENCOUNTER 2021-08-26 15:13 | Emergency (ER) | payer MEDICARE, MEDICAID, SELFPAY ==
--- NOTE | ~2021-08-26 | XR_ITS ---
EXAMINATION: XR chest 2V DATE: 08/26/2021 16:29 INDICATION: Cough TECHNIQUE: PA and lateral views of the chest were obtained. COMPARISON: Chest radiograph dated 10/01/[address] dated 12/19/2014 FINDINGS: Calcified left upper lobe nodule near the hilum consistent with old granulomatous disease. The lungs are otherwise clear with no focal airspace opacities, pulmonary edema, pleural effusion or pneumothorax. The cardiomediastinal silhouette is normal. Mild lower thoracic kyphosis with chronic m ild anterior wedging of a couple vertebral bodies at the thoracolumbar junction. Cholecystectomy clip s in the right upper quadrant. IMPRESSION: 1. No acute cardiopulmonary disease. Reviewed, dictated and finalized at location A.
[2021-08-26 15:27] VITALS: BP 154/72; PULSE 86; RESP 20; TEMP 36.5; O2SAT 98
--- NOTE | 2021-08-26 15:34 | ED.URI ---
HPI - URI/Sore Throat General Chief Complaint: Upper Respiratory Infection Stated Complaint: cold symptoms Time Seen by Provider: 08/26/21 15:35 Source: patient and RN notes reviewed Mode of arrival: ambulatory Limitations: no limitations History of Present Illness HPI Narrative: 65-year-old male presents with concern for 4-day history of increased shortness of breath and cough. He reports history of COPD for which she uses an inhaler. He reports he has a nebulizer at home, however he has not had medicine for it. He denies fever, body aches, chills, sweats. Reports he spent some time at a hospital while his was ill. He denies chest pain. Denies nausea, vomiting, diarrhea. Reports rhinorrhea and nasal congestion. MD elicited complaint: cough Related Data Home Medications Medication Instructions Recorded Confirmed Lantus Solostar U-100 Insulin 60 unit SUBCUT BID 10/01/20 12/18/20 citalopram 40 mg PO DAILY 10/01/20 12/27/20 fluticasone propion-salmeterol 1 inh INHALATION BID 10/01/20 12/27/20 gabapentin 600 mg PO TID PRN 10/01/20 12/27/20 glimepiride 4 mg DAILY 10/01/20 12/27/20 metformin 1,000 mg PO BID 10/01/20 12/18/20 [id number] 1 tablet PO DAILY 12/18/20 12/27/20 [Neuriva Plus] atorvastatin 20 mg PO DAILY 12/18/20 12/27/20 finasteride 5 mg PO DAILY 12/18/20 12/27/20 ketoconazole 1 applic TOPICAL DAILY 12/18/20 12/18/20 tamsulosin 0.8 mg PO DAILY 12/18/20 12/18/20 Allergies Allergy/AdvReac Type Severity Reaction Status Date / Time No Known Allergies Allergy Verified 08/26/21 15:44 Review of Systems Review of Systems: CONSTITUTIONAL: Denies malaise, chills, sweats, or fever. EYES: Denies visual changes, redness, or discharge. ENT: Reports rhinorrhea, congestion. Denies sinus pain, otalgia and sore throat. CARDIOVASCULAR: Denies chest pain, palpitations, or edema. RESPIRATORY: Reports cough, dyspnea. GASTROINTESTINAL: Denies abdominal pain, nausea, vomiting, diarrhea SKIN: Denies rash or itching. MUSCULOSKELETAL: Denies myalgia. NEUROLOGIC: Denies headache. 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 Emphysema lung HTN (hypertension) Hyperlipidemia Lumbar spine pain Sciatica Seasonal allergies SOB (shortness of breath) Urinary hesitancy Surgical History Surgical History (Updated 10/01/20 @ 19:45 by Tamiko Coleman NP) Hx of cholecystectomy Family History Family History Sibling Family history of thyroid disease Mother Cerebrovascular accident Family history of Alzheimer's disease Family history of hearing loss Grandparent Family history of Alzheimer's disease Father Malignant neoplasm of prostate Family history of coronary artery disease Family history of lung disease Family history of hearing loss Social History Social History (Updated 10/01/20 @ 19:46 by Tamiko Coleman NP) Social History: The patient has 2 biological children and 2 step children. The patient stated that his is the durable power state's attorney for healthcare. The patient is a full code. The patient is retired. Patient is a lifelong nonsmoker. Does not use any alcohol but he does smoke marijuana every day. Smoking status: Never smoker Alcohol intake: never Substance use: current Substance use type: marijuana Last use: 09/30/20 Gender identity (if verbalized by the patient): Male Spiritual care concerns: No Comments At time of signature, agree with nursing past medical, surgical, social and family history. There is no relevant family history pertinent to the presenting complaint Exam Narrative: GENERAL: Wel
[2021-08-26] MEDS: IPRATROPIUM BR 0.02% INH SOLN 0.5 MG/2.5 ML VIAL INHALATION (16:01)
[2021-08-26] MEDS: ALBUTEROL SULFATE NEB 2.5 MG/3 ML INH INHALATION (16:01)
== END 2021-08-26 16:50 | disposition home or self-care (01) ==
PROVIDERS: Emergency Provider Nurse Practitioner; PCP Family Medicine
DX: J06.9 Acute upper respiratory infection, unspecified (principal); R05.9 Cough, unspecified; Z20.822 Contact with and (suspected) exposure to COVID-19; N40.0 Benign prostatic hyperplasia without lower urinary tract symptoms; K21.9 Gastro-esophageal reflux disease without esophagitis; I10 Essential (primary) hypertension; E78.5 Hyperlipidemia, unspecified; E13.40 Other specified diabetes mellitus with diabetic neuropathy, unspecified; F41.9 Anxiety disorder, unspecified; F32.A Depression, unspecified
CPT/HCPCS: 71046; 87426; 87804; 94640; 99213; C9803; G0463

== ENCOUNTER 2023-05-21 14:37 | Outpatient (CLI) | payer MEDICARE, SELFPAY ==
--- NOTE | ~2023-05-21 | XR_ITS ---
XR hip BI 2V w AP pelvis DATE: 05/21/2023 15:10 INDICATION: Hip osteoarthritis TECHNIQUE: AP pelvis. AP and lateral views of each hip. COMPARISON: None FINDINGS: Normal alignment at the pubic symphysis and sacroiliac joints. No pelvic fracture or bone d estruction. Hip joint spaces are symmetric and well preserved. No fracture, dislocation, avascular ne crosis or bone destruction of either hip is detected. IMPRESSION: No significant abnormality Reviewed, dictated and finalized at location L. E OPERATOR IMPRESSION: No significant abnormality
--- NOTE | ~2023-05-21 | XR_ITS ---
XR lumbar spine 6V w bending DATE: 05/21/2023 15:10 INDICATION: Low back pain. Lumbar spondylosis. TECHNIQUE: AP, lateral, coned lateral lumbosacral, bilateral oblique views. Flexion and extension lat eral views. COMPARISON: 02/04/2020 MRI lumbar spine 05/24/2019 lumbar spine FINDINGS: There is minimal levoscoliosis of the lumbar spine. There is degenerative spurring of the lower thoracic spine. There is moderate degenerative disc disease including moderate loss of disc space height and prominen t anterior spurring at L1-2, L2-3 and L3-4. L4-5 and L5-S1 interspaces are relatively well preserved. There is mild anterior spurring at L4-5. There is prominent degenerative change at the apophyseal joints particularly at L4-5 and L5-S1. There is slight anterolisthesis at L4-5 due to degenerative change at the apophyseal joints. No instability on flexion or extension is evident. The sacroiliac joints are intact. IMPRESSION: Moderately prominent lumbar spondylosis Reviewed, dictated and finalized at location L. AGE DETERMINER
== END 2023-05-21 14:38 | disposition home or self-care (01) ==
PROVIDERS: PCP Family Medicine; Visit Provider Physical Medicine & Rehabilitation
DX: M16.9 Osteoarthritis of hip, unspecified (principal); M43.06 Spondylolysis, lumbar region
CPT/HCPCS: 72114; 73521

== ENCOUNTER 2023-07-21 15:57 | Outpatient (CLI) | payer MEDICARE, SELFPAY ==
--- NOTE | ~2023-07-21 | MR_ITS ---
EXAMINATION: MR lumbar spine wo con DATE: 07/21/2023 16:34 INDICATION: Lumbar radicular pain. Low back pain. TECHNIQUE: Magnetic resonance imaging (MRI) of the lumbar spine was performed without intravenous con trast. Sequences included sagittal T2-weighted FSE, sagittal T2-weighted FS FSE, sagittal T1-weighted FSE, and axial T2-weighted FSE. COMPARISON: Lumbar spine MRI 02/04/2020, radiographs 05/21/23 FINDINGS: There is 10 degrees dextroscoliosis of thoracolumbar spine. There is mild chronic anterior wedging of T11-L2 vertebral bodies. There are Schmorl's nodes at most levels. There is mildly decreas ed disc height at L1-L2, L3-L4, and L4-L5. The distal spinal cord signal intensity is normal. The con us medullaris is at T12-L1. The following disc levels are specifically discussed: L1-L2: The disc is bulging. There is mild bilateral facet joint osteoarthritis. There is mild left ne ural foraminal stenosis. There is no central canal stenosis. L2-L3: The disc is bulging. There is moderate bilateral facet joint osteoarthritis. There is mild bea ateral neural foraminal stenosis. There is no central canal stenosis. L3-L4: The disc is bulging. There is severe right and moderate left facet joint osteoarthritis. There is moderate bilateral neural foraminal stenosis. There is mild central canal stenosis. L4-L5: The disc is bulging. There is severe bilateral facet joint osteoarthritis. There is mild right and moderate left neural foraminal stenosis. There is moderate central canal stenosis. L5-S1: The disc is bulging and has an annular fissure. There is severe bilateral facet joint osteoart hritis. There is moderate right and mild left neural foraminal stenosis. There is mild central canal stenosis. IMPRESSION: 1. Moderate lumbar spondylosis, stable from 02/04/2020. 2. Thoracolumbar dextroscoliosis. Reviewed, dictated and finalized at location A.
== END 2023-07-21 15:58 ==
LOC: MICIMG 15:57
PROVIDERS: PCP Family Medicine; Visit Provider Physical Medicine & Rehabilitation Pain Medicine
DX: M43.06 Spondylolysis, lumbar region (principal); M41.85 Other forms of scoliosis, thoracolumbar region
CPT/HCPCS: 72148

== ENCOUNTER 2023-10-22 12:00 | Outpatient (CLI) | payer MEDICARE, SELFPAY ==
[2023-10-22 12:39] LABS: Alanine Aminotransferase 16 U/L (6-50); Albumin Level 4.2 g/dL (3.5-5.1); Alkaline Phosphatase 73 U/L (38-126); Anion Gap 9 mmol/L (4-12); Aspartate Amino Transferase 20 U/L (17-59); Bilirubin,Total 0.6 mg/dL (0.2-1.3); Blood Urea Nitrogen 12 mg/dL (9-20); Calcium 8.5 mg/dL (8.4-10.2); Carbon Dioxide 27 mmol/L (22-30); Chloride 102 mmol/L (98-107); Cholesterol 127 mg/dL (0-200); Estimated Glomerular Filt Rate > 60; Glucose 172 mg/dL (65-110); HDL Direct 34 mg/dL; Potassium 3.8 mmol/L (3.4-5.0); Sodium 138 mmol/L (137-145); Triglycerides 100 mg/dL (<150)
[2023-10-22 12:51] LABS: LDL Cholesterol Direct 84 mg/dL
[2023-10-22 13:25] LABS: Hemoglobin A1C 7.1 % (<5.7)
[2023-10-28 07:58] LABS: H pylori Ag Stool Not Detected
[2023-11-06 07:53] LABS: Calprotectin, Stool 192
[2023-11-06 07:54] LABS: Pancreatic Elastase, Stool 355
== END 2023-10-22 12:01 | disposition home or self-care (01) ==
PROVIDERS: PCP Family Medicine; Visit Provider Nurse Practitioner Family
DX: R19.7 Diarrhea, unspecified (principal); R11.0 Nausea; E11.40 Type 2 diabetes mellitus with diabetic neuropathy, unspecified; E78.2 Mixed hyperlipidemia; I10 Essential (primary) hypertension; Z79.4 Long term (current) use of insulin
CPT/HCPCS: 36415; 80053; 80061; 82653; 83036; 83993; 87338

== ENCOUNTER 2024-10-26 07:57 | Outpatient (CLI) | payer MEDICARE, MEDICAID, SELFPAY ==
--- NOTE | ~2024-10-26 | NM_ITS ---
EXAM: NM gastric emptying study DATE: 10/26/2024 12:39 INDICATION: Nausea TECHNIQUE: A gastric emptying study was performed using the methodology of Elva RODRIGUEZ, et al. J Nucl Med 2007; 48:568-572. The patient was given a meal consisting of 2 scrambled eggs labeled with mCi T c-99m sulfur colloid, 2 slices of toast, two packages of jam, and approximately 120 mL of water. Simu ltaneous anterior and posterior 1-min images of the abdomen were obtained with the patient supine at multiple time points over a total period of 4 hours. The geometric mean of anterior and posterior vie ws was determined, and the percentage retention was calculated for each time point. COMPARISON: None. FINDINGS: Gastric retention of the radiotracer-labeled meal was 14%, 10%, and 8% at the 1-hour, 2-hour, and 4-h our time points, respectively. With this technique, apparent rapid gastric emptying is suggested by < 30% gastric retention at 1 hour. Delayed gastric emptying is defined by gastric retention of >90% at 1 hour, >60% retention at 2 hours, or >10% retention at 4 hours. Activity within a likely hiatal fara ia on the immediate images. IMPRESSION: 1. Rapid gastric emptying. 2. Likely hiatal hernia. Reviewed, dictated and finalized at location A.
--- OUTSIDE RECORDS SUMMARY | 2024-10-26 08:02 | XMS_ITS | Clinical Summary ---
Author Organization [employer] [id number] [facility] Address [address] [place] [address] Care Team Providers Care Nursery Rn Name Role Phone Donovan Brown MD Primary Care Provider Allergies No known active allergies Medications insulin glargine (LANTUS) 100 unit/mL pen syringe Inject by subcutaneous injection. Active amLODIPine (NORVASC) 2.5 mg tablet Take by mouth daily. Active tamsulosin (FLOMAX) 0.4 mg capsule Take 0.4 mg by mouth daily. Active gabapentin (NEURONTIN) 600 mg tablet Take 600 mg by mouth 3 times daily. Active glimepiride (AMARYL) 4 mg tablet Take 4 mg by mouth daily with breakfast. Active lisinopriL (PRINIVIL) 20 mg tablet Take 20 mg by mouth daily. Active metFORMIN (GLUCOPHAGE) 500 mg tablet Take 500 mg by mouth 2 times daily with meals. Active citalopram (CeleXA) 40 mg tablet Take 40 mg by mouth daily. Active simvastatin (ZOCOR) 40 mg tablet Take 40 mg by mouth daily with supper. Active Active Problems Problem Noted Date Diagnosed Date Spinal stenosis, lumbar jeny on, without neurogenic claudication 03/20/2020 Family History Relation Name Status Comments Father Mother Social History Tobacco Use Types Packs/Day Years Used Date Smoking Tobacco: Never Alcohol Use Standard Drinks/Week Comments Never 0 (1 standard drink = 0.6 oz pur e alcohol) Sex and Gender Information Value Date Recorded Sex Assigned at Not on file Legal Sex Male 3:37 PM CDT Gender Identity Not on file Sexual Orientation Not on file Last Filed Vital Signs Vital Sign Reading Time Taken Comments Blood Pressure - - Pulse - - Temperature - - Respiratory Rate - - Oxygen Saturation - - Inhaled Oxygen Concentration - - Weight 108.9 kg (240 lb) 03/20/2020 8:51 AM RECORDS MANAGEMENT MANAGER Height 177.8 cm (5' 10) 03/20/2020 8:51 AM RECORDS MANAGEMENT MANAGER Body Mass Index 34.44 03/20/2020 8:51 AM RECORDS MANAGEMENT MANAGER Plan of Treatment Health Maintenance Due Date Last Done Comments DTAP/TDAP/TD VACCINES (1 - Tdap) 1972 COLORECTAL SCREENING 1998 Colorectal Cancer Screening 1998 FIT-DNA Q 3 years 1998 FIT/FOBT Q 1 year 1998 Flex Sig/CT Colonography Q 5 years 1998 PNEUMOCOCCAL VACCINE 50+ YEARS (1 of 1 - PCV) 10/01/19 04 ZOSTER VACCINE (1 of 2) 10/01/2003 INFLUENZA VACCINE (#1) 2023 RSV VACCINE (60+ or ) (1 - 1-dose 75+ series) 2028 Insurance [facility] [id number] [place] [address] Care Teams Nursery Rn Relationship Specialty Start Date End Date Donovan Brown MD [address] [place] [address] [phone] PCP - General Family Practice 03/14/20
== END 2024-10-26 07:58 | disposition home or self-care (01) ==
PROVIDERS: PCP Family Medicine; Visit Provider Nurse Practitioner Family
DX: K31.89 Other diseases of stomach and duodenum (principal); R63.0 Anorexia
CPT/HCPCS: 78264; A9541

== ENCOUNTER 2024-12-12 10:34 | Outpatient (CLI) | payer MEDICARE, MEDICAID, SELFPAY ==
--- OUTSIDE RECORDS SUMMARY | 2024-12-12 11:00 | XMS_ITS | Clinical Summary ---
Author Organization [employer] [id number] [facility] Address [address] [place] [address] Care Team Providers Care Bus And Trolley Inspecting Dispatcher Name Role Phone Donovan Brown MD Primary [...] 108.9 kg (240 lb) 03/20/2020 8:51 AM FUDGE CANDY MAKER Height 177.8 cm (5' 10) 03/20/2020 8:51 AM FUDGE CANDY MAKER Body Mass Index 34.44 03/20/2020 8:51 AM FUDGE CANDY MAKER Plan of Treatment Health Maintenance Due Date Last Done Comments DTAP/TDAP/TD VACCINES (1 - Tdap) 1972 COLORECTAL SCREENING 1998 Colorectal Cancer Screening 1998 FIT-DNA Q 3 years 1998 FIT/FOBT Q 1 year 1998 Flex Sig/CT Colonography Q 5 years 1998 PNEUMOCOCCAL VACCINE 50+ YEARS (1 of 1 - PCV) 10/01/19 04 ZOSTER VACCINE (1 of 2) 10/01/2003 INFLUENZA VACCINE (#1) 2024 RSV VACCINE (60+ or ) (1 - 1-dose 75+ series) 2028 Insurance [facility] [id number] Care Teams Bus And Trolley Inspecting Dispatcher Relationship Specialty Start Date End Date Donovan Brown MD [address] [place] [phone] PCP - General Family Practice 03/14/20
--- NOTE | 2024-12-13 06:43 | WPDPFTINT ---
PFT Procedure Performed PFT Procedure Performed Spirometry with Pre/Post Bronchodilator Plethysmography (Lung Vol) Diffusing Cap (DLCO) Flow Vol Loop PFT Interpretation This is a pulmonary function test with pre and post-bronchodilator spirometry, plethysmography and diffusing capacity. The test was performed and results interpreted in accordance with the 2019 and 2005 ATS/ERS Task Force guidelines respectively using the Global Lung Function Initiative-2012 reference equations. Patient demonstrated good effort and cooperation. Reproducibility criteria were met. The quality of the pre bronchodilator spirometry maneuver was Grade A and post bronchodilator spirometry maneuver was Grade A. Findings: Spirometry: The contour the inspiratory and expiratory flow tracing are normal. The pre bronchodilator FVC is 2.73 L, 65% predicted. The pre bronchodilator FEV1 is 2.03, 64% predicted. The pre bronchodilator FEV1: FVC ratio 74%. The post bronchodilator FVC is 3.13 L, representing a 15% increase. The post bronchodilator FEV1 is 2.25 L, representing an 11% increase. The post bronchodilator FEV1: FVC ratio 72%. Plethysmography: The total lung capacity is 6.23 L, 88% predicted. The functional residual capacity is 3.53 L, 94% predicted. The residual volume is 3.38 L, 137% predicted. The residual volume: Total lung capacity ratio is 54%. Diffusing capacity: The diffusing capacity unadjusted for hemoglobin and carboxyhemoglobin is 18.4, 71% predicted. The diffusing capacity adjusted for alveolar volume is 3.77, 97% predicted. In comparison to previous pulmonary function testing on 01/05/2015 in which only pre bronchodilator spirometry was measured, the pre bronchodilator FVC has increased from 2.10 L to 2.73 L. The pre bronchodilator FEV1 is increased from 1.00 L to 2.03 L. The total lung capacity is unchanged from 6.91 L to 6.23 L. The functional residual capacity is decreased from 4.79 L to 3.53 L. The residual volume has decreased from 4.64 L to 3.38 L. The residual volume total: Total lung capacity ratio as decreased from 67% to 54%. The diffusing capacity unadjusted for hemoglobin and carboxyhemoglobin is unchanged from 20.1 to 18.4. The diffusing capacity adjusted for alveolar volume is decreased from 5.21 to 3.77. Impression: The FEV1 is less than 80% predicted and the FEV1: FVC ratio is greater than 70% consistent with Preserved Ratio Impaired Spirometry (PRISm) with a low FVC. The increase in residual volume to total lung volume ratio is consistent with hyperinflation. The diffusing capacity is normal. In comparison to previous pulmonary function testing on 01/05/2015, there has been a greater than anticipated time dependent increase in the FVC and FEV1. there has been a greater than anticipated time dependent decrease in the functional residual capacity, residual volume, residual volume: Total lung capacity ratio and diffusing capacity adjusted for alveolar volume with no significant change in the total lung capacity or diffusing capacity unadjusted for hemoglobin and carboxyhemoglobin. Clinical correlation recommended.
== END 2024-12-12 10:35 | disposition home or self-care (01) ==
LOC: ANHPFT 10:35
PROVIDERS: PCP Family Medicine; Visit Provider Nurse Practitioner Family
DX: R06.09 Other forms of dyspnea (principal)
CPT/HCPCS: 94060; 94726; 94729

== ENCOUNTER 2025-01-24 08:28 | Outpatient (CLI) | payer MEDICARE, MEDICAID, SELFPAY ==
--- OUTSIDE RECORDS SUMMARY | 2025-01-24 09:20 | XMS_ITS | Clinical Summary ---
Author Organization [employer] [id number] [facility] Address [address] [place] [address] Care Team Providers Care Instructor Nurse Name Role Phone Donovan Brown MD Primary [...] 108.9 kg (240 lb) 03/20/2020 8:51 AM JERSEY KNITTER Height 177.8 cm (5' 10) 03/20/2020 8:51 AM JERSEY KNITTER Body Mass Index 34.44 03/20/2020 8:51 AM JERSEY KNITTER Plan of Treatment Health Maintenance Due Date [...] (1 - 1-dose 75+ series) 2028 Insurance [facility] [id number] Care Teams Instructor Nurse Relationship Specialty Start Date End Date Donovan Brown MD [address] [place] [phone] PCP - General Family Practice 03/14/20
--- NOTE | 2025-02-17 10:27 | WPDSLEEPSTUD ---
Sleep Study Date of Study: 01/24/25 Ordering Provider: Jan Thomas APRN Interpreting Physician: Camilla Packer DO Sleep Study Type: Polysomnogram Height: 1.73 m Weight: 74.843 kg Body Mass Index: 25.0 Neck Circumference (inches): 17 [place]: 5 Reason for Sleep Study Difficulty staying asleep *08/16/2022: [place] home sleep study showed AHI of 29.6 with desaturation down to 72%. Sleep History The patient is a 69-year-old male with previously diagnosed sleep apnea that had a sleep study ordered by the pulmonary group for re-evaluation of sleep apnea. Despite the patient taking Lunesta 2 mg 11:00 p.m., the patient had a sleep latency of 143 minutes. The patient rarely awakens from sleep short of breath. He frequently awakens at night with heartburn, belching or cough. He frequently snores and is frequently loud enough others complain. He occasionally has trouble sleeping when he has a cold. He denies waking up gasping for air throughout the night. He occasionally has breathing problems at night observed by himself or others. He frequently sweats excessively at night. He denies having heart palpitations or irregular heartbeats during the night. He frequently falls asleep during the day but never while driving. He denies sleep paralysis, cataplexy and hypnagogic / hypnopompic hallucinations. He rarely has trouble at school or work due to sleepiness. He denies feeling afraid of going to sleep. He denies having nightmares. He denies remembering his dreams. He constantly has thoughts racing through his mind. He constantly feels sad, depressed and anxious. He occasionally has muscular tension. He frequently notices parts of his body jerk. He frequently kicks during. He occasionally has crawling and aching in his legs and occasionally has leg pain during the night. He denies grinding his teeth during sleep and denies awakening with morning jaw pain. He is occasionally bothered by pain during the day and occasionally awakened by pain during the night. He rarely wakes up feeling stiff in the morning. He rarely wakes up with sore or achy muscles. He occasionally wakes up with pain in the neck, spine or other joints. He wakes up at 5:00 a.m. every morning. It takes him several hours to fall asleep. He wakes up 4-5 times throughout the night to urinate and is able to fall back asleep within 10-15 minutes. He will stay in bed for a few minutes after waking in the morning. He currently lives with his stepdaughter. He does consume caffeinated soda within 2 hours of bedtime. He denies engaging in physical exercise before bedtime. He will watch television before falling asleep. He will take naps in afternoon or the evening but they are not refreshing. He does consume caffeinated sodas throughout the day. He denies alcohol consumption. He currently vapes marijuana 3 times per week. [facility] Past Medical History Medical History Microcytic anemia Personal history of adenomatous and serrated colon polyps Obstructive sleep apnea Unspecified hearing loss, unspecified ear Mild atherosclerosis of both carotid arteries Cerebral atherosclerosis Asthma with chronic obstructive pulmonary disease (COPD) superintendent container terminal (current) use of insulin Major depressive disorder, recurrent, in partial remission BPH (benign prostatic hyperplasia) Hyperlipidemia Diabetes mellitus with neuropathy COPD (chronic obstructive pulmonary disease) Anxiety Lumbar spine pain Sciatica Seasonal allergies Urinary hesitancy Depression Chronic GERD HTN (hypertension) Surgical History Surgical History Hx of cholecystectomy Family History Family History Sibling Family history of thyroid disease Mother Cerebrovascular accident Family history of Alzheimer's disease Family history of hearing loss Grandparent Family history of Alzheimer's disease Father Malignant neoplasm of prostate Family history of coronary artery disease Family history of lung disease Family history of hearing loss Social History Social History Smoking status: Never smoker Second hand tobacco smoke exposure: Yes Alcohol intake: never Substance use: current Substance use type: marijuana Other substance usage details: vape, 3/week Use for relaxation and pain Last use: 07/16/22 Do You Feel Safe in your Home?: Yes Lack of Transportation: No Lack of Food: Never True Current Housing: I Have Housing Concerned About Future Housing: No Difficulty Paying Gas/Electric Bills: No Difficulty Paying for Meds: No Currently Unemployed: No Education: Trade/Vocational Certificate Difficulty w/ Childcare or Family Care: No Living arrangements: alone Occupation/Education: retired Gender identity (if verbalized by the patient): Male Sexual Orientation (if Verbalized by the Patient): Straight or Heterosexual Spiritual care concerns: No Medications Home Medications ?Medication ?Instructions ?Recorded ?Confirmed ?Type albuterol sulfate 2.5 mg/3 mL 2.5 mg (3 mL) inhalation Q4H PRN 08/26/21 02/16/25 Rx (0.083 %) solution for nebulization shortness of breath or wheezing #75 mL metformin 1,000 mg tablet See Rx Instructions .Route 06/06/23 02/16/25 Rx .COMPLEX #180 tabs fluticasone 250 mcg-salmeterol 50 1 inh inhalation BID #60 ea 06/11/23 02/16/25 Rx mcg/dose blistr powdr for inhalation Dexcom G7 Sensor (blood-glucose #3 ea 10/23/23 02/16/25 Rx sensor) Super Beta Prostate See Rx Instructions .Route .COMPLEX 04/25/24 02/16/25 History saw palmetto 450 mg capsule 900 mg PO DAILY 04/25/24 02/16/25 History gabapentin 600 mg tablet 600 mg PO TID PRN Pain #270 tabs 05/24/24 02/16/25 Rx mirabegron 25 mg tablet,extended 25 mg PO Q24H 06/08/24 02/16/25 History release 24 hr (Myrbetriq) atorvastatin 20 mg tablet See Rx Instructions .Route 08/05/24 02/16/25 Rx .COMPLEX #90 tabs glimepiride 4 mg tablet See Rx Instructions .Route 08/05/24 02/16/25 Rx .COMPLEX #90 tabs ferrous sulfate 325 mg (65 mg 325 mg PO DAILY #100 tabs 08/22/24 02/16/25 Rx iron) tablet venlafaxine 150 mg 150 mg PO QAM #100 caps 08/30/24 02/16/25 Rx capsule,extended release 24 hr venlafaxine 75 mg capsule,extended 75 mg PO QPM #90 caps 09/19/24 02/16/25 Rx release 24 hr ketoconazole 2 % shampoo See Rx Instructions .Route 11/10/24 02/16/25 Rx .COMPLEX #120 mL tadalafil 5 mg tablet 5 mg PO DAILY #100 tabs 11/18/24 02/16/25 Rx amlodipine 10 mg tablet 10 mg PO DAILY #90 tabs 11/21/24 02/16/25 Rx lisinopril 40 mg tablet 40 mg PO DAILY #90 tabs 11/21/24 02/16/25 Rx albuterol sulfate 90 mcg/actuation 1 inh inhalation Q4H PRN shortness 11/23/24 02/16/25 Rx aerosol inhaler (Ventolin HFA) of breath or wheezing #8.5 grams eszopiclone 2 mg tablet 2 mg PO DIRECTED #2 tabs 11/23/24 02/16/25 Rx pen needle, diabetic 31 gauge x #200 ea 12/04/24 02/16/25 Rx 16 omeprazole 40 mg capsule,delayed 40 mg PO .qd #90 caps 12/29/24 02/16/25 Rx release Lantus Solostar U-100 Insulin 100 See Rx Instructions .Route 01/25/25 02/16/25 Rx unit/mL (3 mL) subcutaneous pen .COMPLEX #15 mL (insulin glargine) buspirone 5 mg tablet 10 mg (2 x 5 mg) PO DAILY #60 tabs 02/16/25 02/16/25 Rx Sleep Procedure A full night polysomnogram using the [employer] multi-channel system recorded the standard physiologic parameters including EEG, EOG, submentalis EMG, anterior tibialis EMG, EKG, body position, nasal and oral airflow using nasal pressure sensor and thermistor.? Respiratory parameters of chest and abdominal movements were recorded with Respiratory Inductance Plethysmography belts. Oxygen saturation was recorded by pulse oximetry. Video monitoring was also performed. Sleep stages, periodic limb movements, and EEG arousals were scored in 30 second epochs according to the criteria of the AASM Scoring Manual. The Apnea-Hypopnea Index was calculated using CMS guidelines for definition of hypopnea with 4% O2 desaturations while scoring respiratory events. Sleep Architecture The total recording time was 399.0 minutes.? The total sleep time was 147.0 minutes. Sleep latency was 143.1 minutes. REM sleep was not achieved during this study. Sleep efficiency was 36.8%. The patient had 37 awakenings for an awakening index of 15.1. Wake after sleep onset time was 108.5 minutes. The patient spent 52.0 minutes, 35.4% of total sleep time in Stage N1. The patient spent 95.0 minutes, 64.6% in Stage N2. The patient spent 0.0 minutes, 0.0% in Stage N3. The patient spent 0.0 minutes, 0.0% in Stage REM sleep. Respiratory Analysis The patient had 64 hypopneas, 2 obstructive apneas and 1 central apnea for an overall Apnea Hypopnea Index of 25.7. The REM Apnea Hypopnea Index was 0. The NREM Apnea Hypopnea Index was 25.7. The patient had a Central Apnea Hypopnea Index of 0.4. There was no evidence of [place] Respirations. Arousals There were 107 total arousals for an arousal index of 43.7. There were 61 spontaneous arousals for an index of 24.9. There were 23 arousals due to respiratory events for an index of 9.4. There were 15 arousals due to periodic limb movements for an index of 6.1.? There were 8 arousals due to isolated limb movements for an index of 3.3. Periodic Limb Movements The patient had 35 isolated limb movements with an index of 14.3. The patient had 188 periodic limb movements with an index of 76.7, which is elevated (normal < 15). Patient had a total of 223 limb movements with a total limb movement index of 91.0. Oximetry Data The patient had an average oxygen saturation of 88.3% in sleep with a minimum oxygen saturation of 79.0% and a maximum oxygen saturation of 97.0%. The patient had 77 oxygen desaturations that were 4% or greater resulting in an Oxygen Desaturation Index of 31.4.? The patient spent 151 minutes, 39.1% of total sleep time with an oxygen saturation below 88%. Snoring Profile Mild to moderate snoring was present throughout the study. Cardiac Profile The EKG showed normal sinus rhythm with frequent PVCs and intermittent trigeminy.?The patient had an average pulse rate of 66.7 bpm with a minimum pulse of rate of 40.0 bpm and a maximum pulse rate of 82.0 bpm.? EEG Profile No signs of seizure activity seen. Assessment and Plan Assessment and Plan (1) Obstructive sleep apnea: Code(s): G47.33 - Obstructive sleep apnea (adult) (pediatric) Status: Acute Assessment and Plan: The patient had an overall AHI of 25.7 with desaturation down to 79%. This is consistent with moderate sleep apnea. I recommend that the patient have a CPAP Titration study with the use of a hypnotic to ensure we obtain enough sleep data and find an optimal pressure setting. The patient should be advised not to nap during the day of his sleep study in hopes of decreasing his sleep latency. The patient is not a candidate for AutoPAP due to the amount of time he spent during the study with an SpO2<88%. The patient may require BPAP therapy or supplemental oxygen to resolve his sleep apnea and correct the nocturnal hypoxemia. The patient had a significant number of limb movements during the study with the majority being periodic in nature. The patient's sleep history is suggestive of Restless Leg Syndrome. I recommend that the patient have a serum ferritin drawn for evaluation of iron deficiency anemia. If the patient has a serum ferritin less than 75 ng/mL, I recommend starting a daily iron supplement and a Vitamin C supplement for better absorption. If the serum ferritin is greater than 75 ng/mL, I recommend starting a dopamine agonist and titrating the dose until symptoms resolve. There are nonpharmacological methods to treat limb movements including daily exercise, stretching calf muscles before bed, avoiding excessive amounts of caffeine and alcohol, vitamin B supplementation, magnesium lotion massaged into legs before bed, and use of a weighted blanket. (2) Frequent PVCs: Code(s): I49.3 - Ventricular premature depolarization Status: Acute Assessment and Plan: The patient had frequent PVCs with intermittent trigeminy. I recommend that the patient have a Holter monitor to determine his PVC burden. Data The data obtained during this sleep study is adequate for interpretation. Certification This sleep study has been reviewed by a board certified sleep medicine physician.
[2025-02-21 10:17] VITALS: BMI 25.0
== END 2025-01-25 05:57 | disposition home or self-care (01) ==
LOC: ANHCSM 08:29
PROVIDERS: PCP Family Medicine; Visit Provider Nurse Practitioner Family
DX: G47.33 Obstructive sleep apnea (adult) (pediatric) (principal); I49.3 Ventricular premature depolarization; F39 Unspecified mood [affective] disorder
CPT/HCPCS: 95810

== ENCOUNTER 2025-03-23 09:41 | Outpatient (CLI) | payer MEDICARE, MEDICAID, SELFPAY ==
--- NOTE | ~2025-03-23 | XR_ITS ---
EXAMINATION: XR chest 2V, 03/23/2025 10:10 MARKETING PROFESSOR HISTORY: R06.09 - Other forms of dyspnea COMPARISON: No comparisons available. Technique: 2 views obtained. Findings: The lungs are clear, no effusion. No pneumothorax. Heart is normal size. Mediastinal and hilar contours are within normal limits. Bony thorax no acute abnormality. Impression: No acute cardiopulmonary abnormality. Reviewed, dictated and finalized at location P. ETING PROFESSOR Impression: No acute cardiopulmonary abnormality.
--- NOTE | ~2025-03-23 | XR_ITS ---
EXAMINATION: XR pelvis 1-2V, 03/23/2025 10:20 REPRODUCTION ARTIST HISTORY: sacroiliitis COMPARISON: No comparisons available. Findings: No acute fracture or malalignment. No significant degenerative changes. Soft tissues unremarkable. Impression: No acute fracture or malalignment. Reviewed, dictated and finalized at location P. ODUCTION ARTIST Impression: No acute fracture or malalignment.
--- OUTSIDE RECORDS SUMMARY | 2025-03-23 10:21 | XMS_ITS | Clinical Summary ---
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
== END 2025-03-23 09:42 | disposition home or self-care (01) ==
PROVIDERS: PCP Family Medicine; Referring Provider Nurse Practitioner Family; Visit Provider Physical Medicine & Rehabilitation Pain Medicine
DX: M46.1 Sacroiliitis, not elsewhere classified (principal); R06.09 Other forms of dyspnea
CPT/HCPCS: 71046; 72170